=== PATIENT | male | born 2005 | race Caucasian/White ===

== ENCOUNTER 2024-02-12 14:23 | Outpatient (CLI) | payer OTHER, SELFPAY ==
--- NOTE | 2024-02-12 14:39 | XRR_ITS ---
PROCEDURE INFORMATION: Exam: XR Right Ankle Exam date and time: 02/12/2024 2:48 PM Age: 18 years old Clinical indication: Injury or trauma; Other: Rolled it; Sprain or strain; Injury details: Pain in the right ankle after rolling it on 02/11/24. Pain is on the lateral side of the right ankle. ; Additional info: Ankle pain, right TECHNIQUE: Imaging protocol: Radiologic exam of the right ankle. Views: 3 or more views. COMPARISON: No relevant prior studies available. FINDINGS: Bones/joints: No acute fracture or malalignment. Ankle mortise is congruent. Joint spaces are preserved. No worrisome lytic or blastic osseous lesion. No cortical erosion or periosteal reaction. No appreciable ankle joint effusion. Soft tissues: Moderate dorsolateral ankle soft tissue swelling. XR/XR ankle RT min 3V* [id number] IMPRESSION: 1. No acute fracture or malalignment. 2. Moderate ankle soft tissue swelling.
== END 2024-02-12 14:24 | disposition home or self-care (01) ==
PROVIDERS: PCP Nurse Practitioner Family; Visit Provider Nurse Practitioner Family
DX: M25.571 Pain in right ankle and joints of right foot (principal)
CPT/HCPCS: 73610

== ENCOUNTER → 2024-04-01 18:47 | Outpatient (BNVA) | payer OTHER, SELFPAY | PROVIDERS: PCP Nurse Practitioner Family; Visit Provider Nurse Practitioner | DX: S62.617A Displaced fracture of proximal phalanx of left little finger, initial encounter for closed fracture (principal); M79.646 Pain in unspecified finger(s); Y93.61 Activity, american tackle football | CPT/HCPCS: 73130 ==